=== PATIENT | male | born 1965 | race Caucasian/White ===

== ENCOUNTER 2017-11-12 07:54 | Emergency (ER) | payer MEDICARE ==
[2017-11-12] MEDS ORDERED: SODIUM CHLORIDE 0.9% 1,000 ML IV STA (08:08)
[2017-11-12] MEDS ORDERED: methylPREDNISolone SOD SUCCI 125 MG/2 ML VIAL IV STA (08:08)
[2017-11-12] MEDS ORDERED: IPRATROPIUM-ALBUTEROL 3 ML NEB INHALATION STA (08:08)
--- NOTE | 2017-11-12 08:32 | ED ---
Chest Pain HPI - General Chief Complaint: Chest Pain Stated Complaint: Chest pain Time Seen by Provider: 11/12/17 08:00 Source: patient, RN notes reviewed Mode of arrival: wheelchair Limitations: no limitations - History of Present Illness Initial Comments: This is a 52-year-old male history of COPD history of [place] who still smokes cigarettes who states he had the onset some chest tightness and cough with sharp chest pain to the right chest over last several days. He also some exertional dyspnea. No overt fevers chills or sweats. He does have a prior history of pneumonia. He also complains of some rhinorrhea no earaches he does have a slight sore throat. MD Complaint: chest pain, other - Related Data Home Medications Medication Instructions Recorded Confirmed ALPRAZolam [Xanax] 0.5 mg PO TID PRN 05/07/17 11/12/17 Lisinopril [Zestril] 5 mg PO DAILY 05/07/17 11/12/17 Naproxen 500 mg PO BID 05/07/17 11/12/17 QUEtiapine [SEROquel] 400 mg PO BID 05/07/17 11/12/17 Hydrocodone/Acetaminophen [[place] 1 tab PO Q8H PRN 11/12/17 11/12/17 10-325] Rosuvastatin Calcium [Crestor] 10 mg PO DAILY 11/12/17 11/12/17 risperiDONE [RisperDAL] 0.5 mg PO BID 11/12/17 11/12/17 Previous Rx's Medication Instructions Recorded Amoxicillin/Potassium Clav 1 tab PO Q12HR #20 tab 11/12/17 [Augmentin 875-125 Tablet] predniSONE 20 mg PO BID #10 tab 11/12/17 Allergies Allergy/AdvReac Type Severity Reaction Status Date / Time Fish Containing Products Allergy Swelling Verified 11/12/17 09:23 [Fish] ibuprofen Allergy Swelling/IT Verified 11/12/17 09:23 GAIL Review of Systems ROS Statement: Those systems with pertinent positive or pertinent negative responses have been documented in the HPI. ROS Other: All systems not noted in ROS Statement are negative. EKG Findings - EKG Results: EKG: interpreted by MARYBELD, sinus rhythm (Sinus rhythm rate 94. Interval 158 QRS duration 106 QT since QTC of 358/[address]-T wave changes. There is some evidence of poor R-wave progression) Past Medical History Past Medical History: Coronary Artery Disease (CAD), Diabetes Mellitus, Hyperlipidemia, Hypertension, Osteoarthritis (OA), Renal Disease History of Any Multi-Drug Resistant Organisms: None Reported Past Surgical History: No Surgical Hx Reported Past Anesthesia/Blood Transfusion Reactions: No Reported Reaction Past Psychological History: Depression Smoking Status: Current every day smoker Past Alcohol Use History: None Reported Past Drug Use History: None Reported General Exam - General Exam Comments Initial Comments: This is a well-developed well-nourished awake alert oriented times 3 male Limitations: no limitations General appearance: alert, anxious, in distress Head exam: Present: atraumatic, normocephalic, normal inspection Eye exam: Present: normal appearance, PERRL, EOMI. Absent: scleral icterus, conjunctival injection, periorbital swelling ENT exam: Present: normal exam, mucous membranes moist Neck exam: Present: normal inspection. Absent: tenderness, meningismus, lymphadenopathy Respiratory exam: Present: wheezes, chest wall tenderness, decreased breath sounds. Absent: respiratory distress, rales, rhonchi, stridor Cardiovascular Exam: Present: regular rate, normal rhythm, normal heart sounds. Absent: systolic murmur, diastolic murmur, rubs, gallop, clicks GI/Abdominal exam: Present: soft, normal bowel sounds. Absent: distended, tenderness, guarding, rebound, rigid Extremities exam: Present: normal inspection, full ROM, normal capillary refill. Absent: tenderness, pedal edema, joint swelling, calf tenderness Back exam: Present: normal inspection Neurological exam: Present: alert, oriented X3, CN II-XII intact Psychiatric exam: Present: normal affect, normal mood Skin exam: Present: warm, dry, intact, normal color. Absent: rash Course Vital Signs 11/12/17 11/12/17 11/12/17 08:00 08:14 08:25 Temperature 99.0 F Pulse Rate 96 88 90 Respiratory 20 Rate Blood Pressure 129/78 O2 Sat by Pulse 96 Oximetry 11/12/17 08:34 Temperature Pulse Rate 92 Respiratory 16 Rate Blood Pressure 140/85 O2 Sat by Pulse 100 Oximetry - Reevaluation(s) Reevaluation #1: 11/12/17 10:24 Reevaluation patient reveals he is feeling much improved he has increased aeration no wheezing Chest Pain MDM - MDM I did review the imaging and reports evidence of right perihilar increased markings. I did reevaluate the patient again the patient has markedly improved aeration no wheezing good breath sounds bilaterally. I did a long discussion with him regarding the findings including the need for smoking cessation. Conversation lasting 3.1 minutes. Patient will be discharged on oral steroids short course of antibiotics and can he was encouraged to stop smoking he is follow-up with his doctor return when necessary patient does state he has inhalers at home. Disposition Clinical Impression: COPD with exacerbation, Pneumonia, Smoking, Atypical chest pain Disposition: HOME SELF-CARE Condition: Good Instructions: Chest Pain (ED), Pneumonia (ED), COPD (Chronic Obstructive Pulmonary Disease) (ED), How to Stop Smoking (ED) Prescriptions: Amoxicillin/Potassium Clav [Augmentin 875-125 Tablet] 1 tab PO Q12HR #20 tab predniSONE 20 mg PO BID #10 tab Referrals: Deshawn Guaman MD [Primary Care Provider] - 1-2 days
[2017-11-12 08:35] VITALS: RESP 16
--- NOTE | 2017-11-12 08:51 | XR ---
EXAMINATION TYPE: XR chest 2V DATE OF EXAM: 11/12/2017 COMPARISON: 05/26/2014 TECHNIQUE: PA and lateral views submitted. HISTORY: Congestion FINDINGS: Heart size normal. No pleural effusion or pneumothorax. Linear subsegmental right perihilar changes a re likely related atelectasis. IMPRESSION: 1. Right perihilar linear changes. Atelectasis favored over early pneumonia correlate clinically
[2017-11-12 08:52] LABS: ALT 34 U/L (21-72); AST 17 U/L (17-59); Alkaline Phosphatase 99 U/L (38-126); Anion Gap 12 mmol/L; Blood Urea Nitrogen 11 mg/dL (9-20); Calcium 9.4 mg/dL (8.4-10.2); Carbon Dioxide 23 mmol/L (22-30); Chloride 106 mmol/L (98-107); Glucose 190 mg/dL (74-99); Magnesium 1.8 mg/dL (1.6-2.3); Potassium 4.6 mmol/L (3.5-5.1); Sodium 141 mmol/L (137-145); Total Bilirubin 0.5 mg/dL (0.2-1.3); Total Protein 6.7 g/dL (6.3-8.2)
[2017-11-12 08:58] LABS: Basophils # (A) 0.1 k/uL (0-0.2); Basophils % (A) 1 %; Eosinophils # (A) 0.4 k/uL (0-0.7); Eosinophils % (A) 4 %; HCT 51.2 % (39.0-53.0); HGB 16.3 gm/dL (13.0-17.5); Lymphocytes # (A) 2.5 k/uL (1.0-4.8); Lymphocytes % (A) 21 %; MCH 25.1 pg (25.0-35.0); MCHC 31.8 g/dL (31.0-37.0); MCV 79.1 fL (80.0-100.0); Mean Platelet Volume 8.2; Monocytes # (A) 0.6 k/uL (0-1.0); Monocytes % (A) 6 %; Neutrophils # (A) 7.8 k/uL (1.3-7.7); Neutrophils % (A) 67 %; Platelet Count 209 k/uL (150-450); RBC 6.47 m/uL (4.30-5.90); RDW 15.8 % (11.5-15.5); WBC 11.6 k/uL (3.8-10.6)
[2017-11-12 09:01] LABS: D-Dimer <0.17 mg/L FEU (<0.60); Partial Thromboplastin Time 24.2 sec (22.0-30.0); Prothrombin Time 9.9 sec (9.0-12.0)
[2017-11-12 09:14] LABS: Creatine Kinase 121 U/L (55-170)
[2017-11-12 09:26] LABS: Creatine Kinase MB 1.5 ng/mL (0.0-2.4); Troponin I <0.012 ng/mL (0.000-0.034)
[2017-11-12] MEDS ORDERED: AMOXIC-POT CLAV 875MG STARTER 2 EACH TABLET PO STA (10:28)
[2017-11-12 10:40] VITALS: BP 139/78; PULSE 81; TEMP 98.1
== END 2017-11-12 10:38 | disposition home or self-care (01) ==
LOC: EC 07:54
DX: J44.1 Chronic obstructive pulmonary disease with (acute) exacerbation (principal); J18.9 Pneumonia, unspecified organism; F17.200 Nicotine dependence, unspecified, uncomplicated; I25.10 Atherosclerotic heart disease of native coronary artery without angina pectoris; E78.5 Hyperlipidemia, unspecified; I10 Essential (primary) hypertension; I25.2 Old myocardial infarction; F32.9 Major depressive disorder, single episode, unspecified; Z79.1 Long term (current) use of non-steroidal anti-inflammatories (NSAID); Z79.899 Other long term (current) drug therapy; Z91.013 Allergy to seafood; Z88.6 Allergy status to analgesic agent
CPT/HCPCS: 36415; 94640; 93005; 85379; 83880; 80053; 82550; 82553; 83735; 84484; 85025; 85610; 85730; 87040; 87502; 71046; 99285; 96374; 96361 ×2; J2930

== ENCOUNTER → 2017-12-26 | Outpatient (CLI) | payer MEDICARE ==
[2017-12-26 07:56] LABS: HCT 51.3 % (39.0-53.0); HGB 16.8 gm/dL (13.0-17.5); MCH 25.7 pg (25.0-35.0); MCHC 32.7 g/dL (31.0-37.0); MCV 78.7 fL (80.0-100.0); Platelet Count 234 k/uL (150-450); RBC 6.51 m/uL (4.30-5.90); RDW 13.7 % (11.5-15.5); WBC 11.6 k/uL (3.8-10.6)
[2017-12-26 08:14] LABS: Anion Gap 10 mmol/L; Blood Urea Nitrogen 9 mg/dL (9-20); Carbon Dioxide 27 mmol/L (22-30); Chloride 105 mmol/L (98-107); Potassium 3.7 mmol/L (3.5-5.1); Sodium 142 mmol/L (137-145)
== END | disposition home or self-care (01) ==
LOC: LABPAT 07:33
PROVIDERS: ATTEND Internal Medicine Interventional Cardiology
DX: Z01.812 Encounter for preprocedural laboratory examination (principal); I25.10 Atherosclerotic heart disease of native coronary artery without angina pectoris
CPT/HCPCS: 36415; 80051; 82565; 84520; 85027

== ENCOUNTER 2018-01-03 07:39 | Day surgery (SDC) | payer MEDICARE ==
[2017-12-30 08:25] VITALS: BMI 32.3
[~2018-01-03 07:39] MED LIST: ALPRAZolam 0.25 MG TAB PO PRN; ALPRAZolam 0.5 MG TAB PO PRN; ATORVASTATIN 80 MG TAB PO STA; NITROGLYCERIN SL TABS 0.4 MG TAB SUBLINGUAL PRN; SODIUM CHLORIDE 0.9% 1,000 ML in EMPTY BAG 1 BAG IV ONE
[2018-01-03] MEDS ORDERED: ASPIRIN 325 MG TAB ONE (07:55)
[2018-01-03 08:18] VITALS: TEMP 98.2
[2018-01-03 08:20] LABS: Basophils # (A) 0.1 k/uL (0-0.2); Basophils % (A) 1 %; Eosinophils # (A) 0.4 k/uL (0-0.7); Eosinophils % (A) 4 %; HCT 54.6 % (39.0-53.0); HGB 18.4 gm/dL (13.0-17.5); Lymphocytes # (A) 1.8 k/uL (1.0-4.8); Lymphocytes % (A) 17 %; MCHC 33.7 g/dL (31.0-37.0); MCV 77.1 fL (80.0-100.0); Mean Platelet Volume 6.6; Monocytes # (A) 0.4 k/uL (0-1.0); Monocytes % (A) 4 %; Neutrophils % (A) 73 %; Platelet Count 193 k/uL (150-450); RDW 13.4 % (11.5-15.5); WBC 10.9 k/uL (3.8-10.6)
[2018-01-03] MEDS ORDERED: ALPRAZolam 0.25 MG TAB ONE (08:28)
[2018-01-03 08:29] LABS: Glucose,Whole Blood 302 mg/dL (75-99)
[2018-01-03 08:31] LABS: RBC 7.08 m/uL (4.30-5.90)
[2018-01-03] MEDS ORDERED: LIDOCAINE 2% INJ 20 MG/ML SQ ONE (09:34)
[2018-01-03] MEDS: MIDAZOLAM 2 MG/2 ML VIAL IVP ONE ×2 (09:34→09:41)
[2018-01-03] MEDS: VERAPAMIL SYRINGE (5 MG/10 ML) INTRAARTER ONE ×2 (09:38→09:50)
[2018-01-03] MEDS ORDERED: HEPARIN SODIUM 1,000 UN/ML (10ML VL) IV ONE (09:40)
[2018-01-03] MEDS ORDERED: IOHEXOL 350 MG/ML 125ML BOTTLE INJ ONE (09:51)
[2018-01-03] MEDS ORDERED: SODIUM CHLORIDE 0.9% 1,000 ML IV SCH (10:00)
[2018-01-03] MEDS ORDERED: RX INFO: IV CONTRAST WAS GIVEN 1 EACH MISC MISCELLANE PRN (10:00)
[2018-01-03 10:27] LABS: Glucose,Whole Blood 237 mg/dL (75-99)
--- NOTE | 2018-01-03 11:46 | CC ---
CARDIAC CATHETERIZATION REPORT DATE OF SERVICE: 01/03/2018 PERFORMING PHYSICIAN: Francisco Javier Delgado MD, dobby loom weaver. PROCEDURE PERFORMED: 1. Selective right and left coronary angiogram. 2. Left heart catheterization. INDICATION: This is a pleasant 52-year-old gentleman who does have diabetes, hypertension, dyslipidemia, and underwent echocardiogram, came in to be abnormal. In view of that, heart catheterization was recommended. APPROACH: Right radial artery. COMPLICATION: None. LEVEL OF SEDATION: Moderate with sedation length of 16 minutes. PROCEDURE DESCRIPTION: After obtaining an informed consent, the patient was brought to cardiac chemistry laboratory technician. The right radial artery was cannulated using micropuncture technique and a micropuncture wire passed easily. Then I placed a 6-Armenian sheath in the right radial artery and then I gave the patient 2 mg of verapamil IA. After that I gave the patient 10,000 units of heparin IV. After that, I did selective right and left coronary angiogram using JR4 and JL3.5 catheters. After that, I did left heart catheterization using 6-Armenian pigtail catheter. The procedure was completed without any complication. SELECTIVE CORONARY ANGIOGRAM: 1. The RCA is a large caliber vessel. It is a dominant vessel. The proximal RCA is angiographically normal. The mid RCA has mild disease only. The RCA distally is angiographically normal and bifurcates into PDA and PLV branches, both are angiographically normal. 2. The left main is angiographically normal. It bifurcates into the left circumflex and left anterior descending artery. 3. The left circumflex is a large caliber vessel. It is a nondominant vessel. The proximal circ is angiographically normal. The mid circ is normal and gives rise into an OM branch and the circ distally is angiographically normal as well. 4. The left anterior descending artery; the proximal LAD is angiographically normal and gives rise into a large diagonal branch which seems to be angiographically normal. The mid LAD is normal and the LAD distally is normal as well. HEMODYNAMICS: The left ventricular end-diastolic pressure was about 16 to 18 mmHg and no gradient was identified across the aortic valve. CONCLUSION: Mild nonobstructive disease involving the right coronary artery. Postprocedure management is medical treatment. MMODL / IJN: [id number] /
--- NOTE | 2018-01-03 11:52 | LTR ---
January 03, 2018 Re: Mayco Scar Dear Dr. Guaman: Mr. Mayco Abbott underwent a heart catheterization and that revealed mild nonobstructive disease. I want to thank you for allowing me to participate in his care and please do not hesitate to call if you have any question or concern. Sincerely, MD ABY Khan / [place]: [id number] /
[2018-01-03 12:23] VITALS: RESP 16
[2018-01-03] MEDS ORDERED: INSULIN ASPART 100 UNIT/ML 1 ML 10 ML VIAL SQ SCH ×2 (12:30)
[2018-01-03 14:30] VITALS: BP 132/73
[2018-01-03 14:55] VITALS: PULSE 60
== END 2018-01-03 15:10 | disposition home or self-care (01) ==
LOC: CATHCVL 07:39
PROVIDERS: ATTEND Internal Medicine Interventional Cardiology
DX: I25.10 Atherosclerotic heart disease of native coronary artery without angina pectoris (principal); I10 Essential (primary) hypertension; E11.9 Type 2 diabetes mellitus without complications; E78.5 Hyperlipidemia, unspecified; F17.210 Nicotine dependence, cigarettes, uncomplicated; Z82.49 Family history of ischemic heart disease and other diseases of the circulatory system; Z79.84 Long term (current) use of oral hypoglycemic drugs; Z79.899 Other long term (current) drug therapy; Z88.6 Allergy status to analgesic agent; Z91.013 Allergy to seafood
CPT/HCPCS: 93458; 85025; C1769 ×2; C1894; J2001; J2250; J1644; Q9967

== ENCOUNTER → 2024-08-26 | Outpatient (CLI) | payer MEDICARE ==
[2024-08-26 12:22] LABS: Protein/Creatinine Ratio,Urine 0.175
[2024-08-26 15:03] LABS: Basophils # (A) 0.07 X 10*3/uL (0.00-0.10); Basophils % (A) 0.7 %; Eosinophils # (A) 0.39 X 10*3/uL (0.04-0.35); Eosinophils % (A) 3.6 %; HCT 44.2 % (39.6-50.0); HGB 13.8 g/dL (13.0-17.0); Lymphocytes # (A) 2.14 X 10*3/uL (0.90-5.00); MCH 24.3 pg (27.0-32.0); MCHC 31.2 g/dL (32.0-37.0); Mean Platelet Volume 10.4 FL (9.5-12.2); Monocytes # (A) 0.82 X 10*3/uL (0.20-1.00); Monocytes % (A) 7.6 %; NRBC Per 100 WBC 0 X 10*3/uL (0.00-0.01); Neutrophils # (A) 7.22 X 10*3/uL (1.80-7.70); Neutrophils % (A) 67.4 %; Platelet Count 237 X 10*3/uL (140-440); RBC 5.67 X 10*6/uL (4.40-5.60); RDW 15.3 % (11.5-14.5); WBC 10.72 X 10*3/uL (4.50-10.00)
[2024-08-26 15:08] LABS: Appearance,Urine Clear (Clear); Bilirubin,Urine Negative (Negative); Blood,Urine Negative (Negative); Color,Urine Yellow (Yellow); Ketones,Urine Negative (Negative); Nitrite,Urine Negative (Negative); Specific Gravity,Urine 1.017 (1.001-1.030); Urobilinogen,Urine 0.2 E.U./DL
[2024-08-26 15:28] LABS: % Iron Saturation 23.81 (15.00-50.00); Iron 75 UG/DL (65-175); Magnesium 1.9 mg/dL (1.5-2.4); Phosphorus 3.8 mg/dL (2.4-5.1); Total Iron Binding Capacity 315 UG/DL (228-460); Uric Acid 5.9 mg/dL (3.7-8.7)
[2024-08-26 15:29] LABS: BUN/Creat Ratio 10.72 Ratio (12.00-20.00); Blood Urea Nitrogen 19.3 mg/dL (9.0-27.0); Calcium 9.4 mg/dL (8.7-10.3); Carbon Dioxide 25.1 mmol/L (21.6-31.8); Chloride 105 mmol/L (96-109); Glucose 101 mg/dL (70-110); Potassium 4.9 mmol/L (3.5-5.5); Sodium 140 mmol/L (135-145)
[2024-08-26 16:36] LABS: DNA Double-Stranded Negative (Negative)
[2024-08-26 21:50] LABS: Microalbumin Creatinine Ratio <19 mg/g Cr (0-30); Urine Creatinine 64.1 mg/dL (39.0-259.0)
[2024-08-27 13:56] LABS: C-ANCA <1:20 Titer (<1:20)
== END | disposition home or self-care (01) ==
LOC: LABWHC1 10:07
PROVIDERS: ATTEND Internal Medicine
DX: N18.31 Chronic kidney disease, stage 3a (principal); E55.9 Vitamin D deficiency, unspecified; N25.81 Secondary hyperparathyroidism of renal origin; M10.9 Gout, unspecified; N39.0 Urinary tract infection, site not specified; R80.9 Proteinuria, unspecified; D64.9 Anemia, unspecified
CPT/HCPCS: 36415; 80048; 81003; 82040; 82043; 82306; 82570; 82728; 83516; 83540; 83550; 83735; 83970; 84100; 84156; 84550; 85025; 86038; 86160; 86162; 86225; 86255